=== PATIENT | female | born 1990 | race American Indian/Alaskan Native ===

== ENCOUNTER 2020-04-15 19:29 | Emergency (ER) | payer MEDICAID ==
[2020-04-15 19:56] VITALS: BP 140/78
[2020-04-15 20:21] LABS: Basophils % (Auto) 0.5 % (0.0-1.8); Eosinophils % (Auto) 1.4 % (0.0-4.3); Lymphocytes % (Auto) 25.8 % (13.4-35.0); Monocytes % (Auto) 10.8 % (0.0-7.3); Platelet Count 238 K/mm3 (140-440)
[2020-04-15 20:34] LABS: Alanine Aminotransferase 11 units/L (7-56); Blood Urea Nitrogen 8 mg/dL (7-17); Calcium 8.6 mg/dL (8.4-10.2); Hemolysis Index 10
[2020-04-15 20:37] LABS: BUN/Creatinine Ratio 13
[2020-04-15 20:45] LABS: Basophils # (Auto) 0.1 K/mm3 (0.0-0.1); Eosinophils # (Auto) 0.2 K/mm3 (0.0-0.4); Hematocrit 36.8 % (30.3-42.9); Hemoglobin 12.4 gm/dl (10.1-14.3); Lymphocytes # (Auto) 2.6 K/mm3 (1.2-5.4); Mean Corpuscular HGB Conc 34 % (30-34); Mean Corpuscular Volume 88 fl (79-97); Monocytes # (Auto) 1.1 K/mm3 (0.0-0.8); Red Blood Count 4.18 M/mm3 (3.65-5.03); Red Cell Distribution Width 15.7 % (13.2-15.2)
--- NOTE | 2020-04-15 20:59 | Emergency Department Report ---
ED HPI - General Chief complaint: Vaginal Bleeding Stated complaint: 8WKS /ABD PAIN/SPOTTING Time Seen by Provider: 04/15/20 19:54 Source: patient Mode of arrival: Ambulatory Limitations: No Limitations - History of Present Illness Initial comments: Patient is a 29-year-old female presents emergency room with complaints of lower abdominal discomfort and cramping that began a week ago. She states that last week she was having some vaginal spotting but that has since resolved and she has no bleeding or spotting currently. She states that she has nausea. Patient reports that she is approximately 8 weeks . She states her last menstrual cycle was 02/18/2020. She states that she does not have an appointment with an TEST EQUIPMENT MECHANIC until April. She has not yet had this confirmed. She states that she is also been having some dysuria, vaginal burning, vaginal discharge, she states that she believes she may have an STD or bacterial vaginosis. She denies any itching. She denies any back pain, vomiting, diarrhea, fever. No past medical history. No allergies medications. - Related Data Previous Rx's Medication Instructions Recorded Last Taken Type Acetaminophen [Tylenol] 650 mg PO Q8HR PRN #20 capsule 04/15/20 Unknown Rx Metoclopramide [Reglan] 10 mg PO Q8HR PRN #14 tab 04/15/20 Unknown Rx cephALEXin [Keflex] 500 mg PO BID 7 Days #14 cap 04/15/20 Unknown Rx metroNIDAZOLE [Flagyl] 500 mg PO BID 7 Days #14 tab 04/15/20 Unknown Rx Allergies Allergy/AdvReac Type Severity Reaction Status Date / Time No Known Allergies Allergy Unverified 04/15/20 20:02 ED Review of Systems ROS: Stated complaint: 8WKS /ABD PAIN/SPOTTING Other details as noted in HPI Comment: All other systems reviewed and negative ED Past Medical Hx - Past Medical History Previous Medical History?: No - Surgical History Past Surgical History?: No - Social History Smoking Status: Never Smoker Substance Use Type: None - Medications Home Medications: Home Medications Medication Instructions Recorded Confirmed Last Taken Type Acetaminophen [Tylenol] 650 mg PO Q8HR PRN #20 capsule 04/15/20 Unknown Rx Metoclopramide [Reglan] 10 mg PO Q8HR PRN #14 tab 04/15/20 Unknown Rx cephALEXin [Keflex] 500 mg PO BID 7 Days #14 cap 04/15/20 Unknown Rx metroNIDAZOLE [Flagyl] 500 mg PO BID 7 Days #14 tab 04/15/20 Unknown Rx ED Physical Exam - General Limitations: No Limitations General appearance: alert, in no apparent distress - Head Head exam: Present: atraumatic, normocephalic - Eye Eye exam: Present: normal appearance - ENT ENT exam: Present: mucous membranes moist - Respiratory Respiratory exam: Present: normal lung sounds bilaterally. Absent: respiratory distress, wheezes, rales, rhonchi, stridor, chest wall tenderness, accessory muscle use, decreased breath sounds, prolonged expiratory - Cardiovascular Cardiovascular Exam: Present: regular rate, normal rhythm, normal heart sounds. Absent: systolic murmur, diastolic murmur, rubs, gallop - GI/Abdominal GI/Abdominal exam: Present: soft, normal bowel sounds. Absent: distended, tenderness, guarding, rebound, rigid - Neurological Exam Neurological exam: Present: alert, oriented X3 - Psychiatric Psychiatric exam: Present: normal affect, normal mood - Skin Skin exam: Present: warm, dry, intact ED Course Vital Signs 04/15/20 19:52 Temperature 98.8 F Pulse Rate 92 H Respiratory 18 Rate Blood Pressure 140/78 O2 Sat by Pulse 98 Oximetry ED Medical Decision Making - Lab Data Result diagrams: 04/15/20 20:00 04/15/20 20:00 Lab Results 04/15/20 04/15/20 04/15/20 Range/Units 19:55 20:00 20:00 WBC 10.5 (4.5-11.0) K/mm3 RBC 4.18 (3.65-5.03) M/mm3 Hgb 12.4 (10.1-14.3) gm/dl Hct 36.8 (30.3-42.9) % MCV 88 (79-97) fl MCH 30 (28-32) pg MCHC 34 (30-34) % RDW 15.7 H (13.2-15.2) % Plt Count 238 (140-440) K/mm3 Lymph % (Auto) 25.8 (13.4-35.0) % [place] % (Auto) 10.8 H (0.0-7.3) % Eos % (Auto) 1.4 (0.0-4.3) % Baso % (Auto) 0.5 (0.0-1.8) % Lymph # (Auto) 2.6 (1.2-5.4) K/mm3 [place] # (Auto) 1.1 H (0.0-0.8) K/mm3 Eos # (Auto) 0.2 (0.0-0.4) K/mm3 Baso # (Auto) 0.1 (0.0-0.1) K/mm3 Seg Neutrophils % 61.5 (40.0-70.0) % Seg Neutrophils # 6.5 (1.8-7.7) K/mm3 Sodium 137 (137-145) mmol/L Potassium 3.6 (3.6-5.0) mmol/L Chloride 102.5 (98-107) mmol/L Carbon Dioxide 26 (22-30) mmol/L Anion Gap 12 mmol/L BUN 8 (7-17) mg/dL Creatinine 0.6 (0.6-1.2) mg/dL Estimated GFR > 60 ml/min BUN/Creatinine Ratio 13 % Glucose 101 H (65-100) mg/dL Calcium 8.6 (8.4-10.2) mg/dL Total Bilirubin 0.20 (0.1-1.2) mg/dL AST 16 (5-40) units/L ALT 11 (7-56) units/L Alkaline Phosphatase 51 (35-129) units/L Total Protein 7.3 (6.3-8.2) g/dL Albumin 4.0 (3.9-5) g/dL Albumin/Globulin Ratio 1.2 % HCG, Quant (0-4) mIU/mL Urine Color (Yellow) Urine Turbidity (Clear) Urine pH (5.0-7.0) Ur Specific [place] (1.003-1.030) Urine Protein (Negative) mg/dL Urine Glucose (UA) (Negative) mg/dL Urine Ketones (Negative) mg/dL Urine Blood (Negative) Urine Nitrite (Negative) Urine Bilirubin (Negative) Urine Urobilinogen (<2.0) mg/dL Ur Leukocyte Esterase (Negative) Urine WBC (Auto) (0.0-6.0) /HPF Urine RBC (Auto) (0.0-6.0) /HPF U Epithel Cells (Auto) (0-13.0) /HPF Urine Mucus /HPF Blood Type B POSITIVE 04/15/20 04/15/20 Range/Units 20:00 Unknown WBC (4.5-11.0) K/mm3 RBC (3.65-5.03) M/mm3 Hgb (10.1-14.3) gm/dl Hct (30.3-42.9) % MCV (79-97) fl MCH (28-32) pg MCHC (30-34) % RDW (13.2-15.2) % Plt Count (140-440) K/mm3 Lymph % (Auto) (13.4-35.0) % [place] % (Auto) (0.0-7.3) % Eos % (Auto) (0.0-4.3) % Baso % (Auto) (0.0-1.8) % Lymph # (Auto) (1.2-5.4) K/mm3 [place] # (Auto) (0.0-0.8) K/mm3 Eos # (Auto) (0.0-0.4) K/mm3 Baso # (Auto) (0.0-0.1) K/mm3 Seg Neutrophils % (40.0-70.0) % Seg Neutrophils # (1.8-7.7) K/mm3 Sodium (137-145) mmol/L Potassium (3.6-5.0) mmol/L Chloride (98-107) mmol/L Carbon Dioxide (22-30) mmol/L Anion Gap mmol/L BUN (7-17) mg/dL Creatinine (0.6-1.2) mg/dL Estimated GFR ml/min BUN/Creatinine Ratio % Glucose (65-100) mg/dL Calcium (8.4-10.2) mg/dL Total Bilirubin (0.1-1.2) mg/dL AST (5-40) units/L ALT (7-56) units/L Alkaline Phosphatase (35-129) units/L Total Protein (6.3-8.2) g/dL Albumin (3.9-5) g/dL Albumin/Globulin Ratio % HCG, Quant 77988 H (0-4) mIU/mL Urine Color Yellow (Yellow) Urine Turbidity Slightly-cloudy (Clear) Urine pH 6.0 (5.0-7.0) Ur Specific [place] 1.025 (1.003-1.030) Urine Protein <15 mg/dl (Negative) mg/dL Urine Glucose (UA) Neg (Negative) mg/dL Urine Ketones Neg (Negative) mg/dL Urine Blood Neg (Negative) Urine Nitrite Neg (Negative) Urine Bilirubin Neg (Negative) Urine Urobilinogen 4.0 (<2.0) mg/dL Ur Leukocyte Esterase Lg (Negative) Urine WBC (Auto) 9.0 H (0.0-6.0) /HPF Urine RBC (Auto) 4.0 (0.0-6.0) /HPF U Epithel Cells (Auto) 6.0 (0-13.0) /HPF Urine Mucus 1+ /HPF Blood Type - Radiology Data Radiology results: report reviewed Ordering Physician: AMPARO CRAWLEY Date of Service: 04/15/20 Procedure(s): US OB <= 14 weeks fetus Accession Number(s): [id number] cc: AMPARO CRAWLEY US OB <= 14 weeks fetus, US OB transvaginal INDICATION / CLINICAL INFORMATION: abd pain, . COMPARISON: None available. FINDINGS: Single live fetus of approximately 7 1/2 weeks gestation is seen in the uterus. heart rate is 137. Both ovaries are normal in appearance with normal symmetric blood flow. IMPRESSION: Single live fetus of approximately 7 1/2 weeks gestational age in the uterus. heart rate is 137. Signer Name: Matias Preston MD FACR Signed: 04/15/2020 9:40 PM Workstation Name: [id number] Transcribed By: MS Dictated By: Matias Preston MD Electronically Authenticated By: Matias Preston MD Signed Date/Time: 04/15/202139 DD/ 38 TD/TT: - Medical Decision Making Patient is a 29-year-old female presents emergency room with complaints of lower abdominal discomfort and cramping that began a week ago. She states that last week she was having some vaginal spotting but that has since resolved and she has no bleeding or spotting currently. She states that she has nausea. Patient reports that she is approximately 8 weeks . She states her last menst rual cycle was 02/18/2020. She states that she does not have an appointment with an TEST EQUIPMENT MECHANIC until April. She has not yet had this confirmed. She states that she is also been having some dysuria, vaginal burning, vaginal discharge, she states that she believes she may have an STD or bacterial vaginosis. She denies any itching. She denies any back pain, vomiting, diarrhea, fever. No past medical history. No allergies medications. VSS. no abd ttp, no guarding, no rebound, no rigidity, normal bowel sounds, [place] [id number], otherwise labs are stable. pt is Rh +. UA shows small amount of WBCs and large leukocyte esterase, could be secondary to UTI vs STD. pt prophylactically treated with ceftriaxone and azithromycin secondary to . OB US: Single live fetus of approximately 7 1/2 weeks gestational age in the uterus. heart rate is 137. discussed all results with pt and answered questions. pt given prescription for flagyl, tylenol, reglan, and keflex. advised pt please take medication as prescribed. increase your water intake. take a vitamin over the counter. follow up with your accounts payable assistant. follow up with a primary care doctor. please follow up with a clinic or health department for full STD panel. have any partner tested and treated as well. avoid sexual intercourse. return to the emergency room for any new or worsening symptoms. Critical care attestation.: If time is entered above; I have spent that time in minutes in the direct care of this critically ill patient, excluding procedure time. ED Disposition Clinical Impression: Concern about STD in female without diagnosis Qualifiers: Weeks of gestation: less than 8 weeks Qualified Code(s): Z3A.01 - Less than 8 w eeks gestation of Abdominal pain Qualifiers: Abdominal location: lower abdomen, unspecified Qualified Code(s): R10.30 - Lower abdominal pain, unspecified Vaginitis Qualifiers: Chronicity: acute Qualified Code(s): N76.0 - Acute vaginitis UTI (urinary tract infection) Qualifiers: Urinary tract infection type: acute cystitis Hematuria presence: without hematuria Qualified Code(s): N30.00 - Acute cystitis without hematuria Disposition: DC- TO HOME OR SELFCARE Is pt being admited?: No Does the pt Need Aspirin: No Condition: Stable Instructions: Abdominal Pain During , [id number], First Trimester of , [id number], Urinary Tract Infection, Adult Additional Instructions: please take medication as prescribed. increase your water intake. take a vitamin over the counter. follow up with your accounts payable assistant. follow up with a primary care doctor. please follow up with a clinic or health department for full STD panel. have any partner tested and treated as well. avoid sexual intercourse. return to the emergency room for any new or worsening symptoms. Prescriptions: metroNIDAZOLE [Flagyl] 500 mg PO BID 7 Days #14 tab cephALEXin [Keflex] 500 mg PO BID 7 Days #14 cap Metoclopramide [Reglan] 10 mg PO Q8HR PRN #14 tab PRN Reason: nausea/vomiting Acetaminophen [Tylenol] 650 mg PO Q8HR PRN #20 capsule PRN Reason: pain Referrals: PRIMARY CARE,MD [Primary Care Provider] - 2-3 Days your, accounts payable assistant [Other] - 2-3 Days Time of Disposition: 22:00 Print Language: IRANIAN
[2020-04-15 21:21] LABS: Bilirubin,Urine NEG (Negative); Blood,Urine NEG (Negative); Color,Urine Yellow (Yellow); Mucus,Urine 1+ /HPF; Protein,Urine <15 mg/dL mg/dL (Negative)
[2020-04-15] MEDS ORDERED: LIDOCAINE-MPF (1%) 10 MG/1 ML VIAL 5 ML INFILTRATI ONE (21:26)
[2020-04-15] MEDS ORDERED: AZITHROMYCIN 250 MG TAB PO ONE (21:26)
--- NOTE | 2020-04-15 21:45 | Ultrasound Report ---
US OB <= 14 weeks fetus, US OB transvaginal INDICATION / CLINICAL INFORMATION: abd pain, . COMPARISON: None available. FINDINGS: Single live fetus of approximately 7 1/2 weeks gestation is seen in the uterus. heart rate is 1 37. Both ovaries are normal in appearance with normal symmetric blood flow. IMPRESSION: Single live fetus of approximately 7 1/2 weeks gestational age in the uterus. heart rate is 137 . Signer Name: Matias Preston MD FACMarco Antonio Signed: 04/15/2020 9:40 PM Workstation Name: [id number]
== END 2020-04-15 21:58 | disposition home or self-care (01) ==
LOC: ED 19:29
DX: O23.41 Unspecified infection of urinary tract in pregnancy, first trimester (principal); O23.591 Infection of other part of genital tract in pregnancy, first trimester; Z20.2 Contact with and (suspected) exposure to infections with a predominantly sexual mode of transmission; Z3A.08 8 weeks gestation of pregnancy; Z79.899 Other long term (current) drug therapy
CPT/HCPCS: 36415; 76801; 76817; 80053; 81001; 84702; 85025; 86900; 86901; 87086; 96372; 99284; J0696

== ENCOUNTER 2021-07-06 20:30 | Emergency (ER) | payer OTHER ==
[2021-07-06 22:20] VITALS: BP 124/81
[2021-07-06] MEDS ORDERED: ASPIRIN 325 MG TAB PO ONE (22:39)
[2021-07-06 23:24] LABS: Basophils # (Auto) 0.1 K/mm3 (0.0-0.1); Basophils % (Auto) 0.8 % (0.0-1.8); Eosinophils # (Auto) 0.2 K/mm3 (0.0-0.4); Eosinophils % (Auto) 3.4 % (0.0-4.3); Hemoglobin 9.6 gm/dl (10.1-14.3); Lymphocytes # (Auto) 2.5 K/mm3 (1.2-5.4); Lymphocytes % (Auto) 40.4 % (13.4-35.0); Mean Corpuscular HGB Conc 31 % (30-34); Mean Corpuscular Volume 77 fl (79-97); Monocytes # (Auto) 0.4 K/mm3 (0.0-0.8); Monocytes % (Auto) 6.9 % (0.0-7.3); Platelet Count 638 K/mm3 (140-440); Red Blood Count 4.03 M/mm3 (3.65-5.03); Red Cell Distribution Width 19.9 % (13.2-15.2)
[2021-07-06 23:41] LABS: Alanine Aminotransferase 13 units/L (7-56); Albumin 4.6 g/dL (3.9-5); BUN/Creatinine Ratio 14; Blood Urea Nitrogen 11 mg/dL (7-17); Calcium 9.9 mg/dL (8.4-10.2); Hemolysis Index 1
--- NOTE | 2021-07-07 04:02 | Emergency Department Report ---
ED Burn/Smoke HPI - General Chief complaint: Pain General Stated complaint: LT SIDE CHEST PAIN Source: patient Mode of arrival: Ambulatory Limitations: No Limitations - Related Data Previous Rx's Medication Instructions Recorded Last Taken Type Acetaminophen [Tylenol] 650 mg PO Q8HR PRN #20 capsule 04/15/20 Unknown Rx Metoclopramide [Reglan] 10 mg PO Q8HR PRN #14 tab 04/15/20 Unknown Rx cephALEXin [Keflex] 500 mg PO BID 7 Days #14 cap 04/15/20 Unknown Rx metroNIDAZOLE [Flagyl] 500 mg PO BID 7 Days #14 tab 04/15/20 Unknown Rx Allergies Allergy/AdvReac Type Severity Reaction Status Date / Time No Known Allergies Allergy Unverified 04/15/20 20:02 Burn HPI - History Stated Complaint: LT SIDE CHEST PAIN Chief Complaint: Pain General - Home Meds and Allergies Home Medications: Previous Rx's Medication Instructions Recorded Last Taken Type Acetaminophen [Tylenol] 650 mg PO Q8HR PRN #20 capsule 04/15/20 Unknown Rx Metoclopramide [Reglan] 10 mg PO Q8HR PRN #14 tab 04/15/20 Unknown Rx cephALEXin [Keflex] 500 mg PO BID 7 Days #14 cap 04/15/20 Unknown Rx metroNIDAZOLE [Flagyl] 500 mg PO BID 7 Days #14 tab 04/15/20 Unknown Rx Allergies/Adverse Reactions: Allergies Allergy/AdvReac Type Severity Reaction Status Date / Time No Known Allergies Allergy Unverified 04/15/20 20:02 ED Review of Systems ROS: Stated complaint: LT SIDE CHEST PAIN Other details as noted in HPI ED Past Medical Hx - Social History Smoking Status: Never Smoker Substance Use Type: None - Medications Home Medications: Home Medications Medication Instructions Recorded Confirmed Last Taken Type Acetaminophen [Tylenol] 650 mg PO Q8HR PRN #20 capsule 04/15/20 Unknown Rx Metoclopramide [Reglan] 10 mg PO Q8HR PRN #14 tab 04/15/20 Unknown Rx cephALEXin [Keflex] 500 mg PO BID 7 Days #14 cap 04/15/20 Unknown Rx metroNIDAZOLE [Flagyl] 500 mg PO BID 7 Days #14 tab 04/15/20 Unknown Rx ED Physical Exam - General Limitations: No Limitations ED Course Vital Signs 07/06/21 21:41 Temperature 98.9 F Pulse Rate 112 H Respiratory 20 Rate Blood Pressure 124/81 O2 Sat by Pulse 98 Oximetry ED Medical Decision Making - Lab Data Result diagrams: 07/06/21 23:07 07/06/21 23:07 Critical care attestation.: If time is entered above; I have spent that time in minutes in the direct care of this critically ill patient, excluding procedure time. ED Disposition Condition: Stable Referrals: PRIMARY CARE, [Primary Care Provider] - 3-5 Days
--- NOTE | 2021-07-07 04:06 | Emergency Department Report ---
ED Chest Pain HPI - General Chief Complaint: Pain General Stated Complaint: LT SIDE CHEST PAIN Source: patient Mode of arrival: Ambulatory Limitations: No Limitations - History of Present Illness Initial Comments: Patient is a 30-year-old -[place] female with no past medical history who presents to the ED with complaint of acute onset persistent left-sided pleuritic chest pain that radiates to the mid posterior thoracic area for the last 2 days, worse in the last 12 hours. Patient states that she is 3 weeks s/p abdominoplasty surgery in [facility]. Patient states that she is not on any contraceptives. Patient denies dizziness, cough, nausea and vomiting, shortness of breath, neck pain, headache, heavy lifting, numbness and tingling or weakness of upper and lower extremities bilaterally, abdominal pain, change in vision, fever and chills or sore throat. MD Complaint: chest pain (Left-sided chest pain, s/p abdominoplasty surgery 3 weeks ago) -: Sudden, days(s) (2) Onset: during exertion, awoke with symptoms Pain Location: left chest Pain Radiation: back (Left mid posterior thoracic pain) Severity: moderate Severity scale (0 -10): 6 Quality: aching, sharp, other (Pleuritic) Consistency: intermittent Improves With: nothing Worsens With: inspiration, palpation Context: recent surgery (Abdominoplasty surgery) re: denies: nausea, vomting, diaphoresis, dyspnea, sense of impending doom, other Other Symptoms: denies: cough, rash, acid taste in mouth, leg swelling, palpitations, burping Treatments Prior to Arrival: none Aspirin use within the Past 7 Days: (0) No - Related Data On Oral Contraceptives: No Previous Rx's Medication Instructions Recorded Last Taken Type Acetaminophen [Tylenol] 650 mg PO Q8HR PRN #20 capsule 04/15/20 Unknown Rx Metoclopramide [Reglan] 10 mg PO Q8HR PRN #14 tab 04/15/20 Unknown Rx cephALEXin [Keflex] 500 mg PO BID 7 Days #14 cap 04/15/20 Unknown Rx metroNIDAZOLE [Flagyl] 500 mg PO BID 7 Days #14 tab 04/15/20 Unknown Rx Allergies Allergy/AdvReac Type Severity Reaction Status Date / Time No Known Allergies Allergy Unverified 04/15/20 20:02 Heart Score - HEART Score History: Slightly suspicious EKG: Normal Age: < 45 Risk factors: No known risk factors Troponin: < normal limit HEART Score: 0 - EKG Read Time Time EKG Completed: 00:00 EKG Read Time: 00:01 - Critical Actions Critical Actions: 0-3 pts:0.9-1.7%risk of adverse cardiac event.Candidate for discharge ED Review of Systems ROS: Stated complaint: LT SIDE CHEST PAIN Other details as noted in HPI Constitutional: denies: chills, fever Eyes: denies: eye pain, eye discharge, vision change ENT: denies: ear pain, throat pain Respiratory: denies: cough, shortness of breath, wheezing Cardiovascular: chest pain (Left-sided chest pain). denies: palpitations Endocrine: no symptoms reported Gastrointestinal: denies: abdominal pain, nausea, vomiting, diarrhea Genitourinary: denies: urgency, dysuria, discharge Musculoskeletal: back pain (Mid posterior thoracic pain). denies: joint swelling, arthralgia Skin: denies: rash, lesions Neurological: denies: headache, weakness, paresthesias Psychiatric: denies: anxiety, depression Hematological/Lymphatic: denies: easy bleeding, easy bruising ED Past Medical Hx - Social History Smoking Status: Never Smoker Substance Use Type: None - Medications Home Medications: Home Medications Medication Instructions Recorded Confirmed Last Taken Type Acetaminophen [Tylenol] 650 mg PO Q8HR PRN #20 capsule 04/15/20 Unknown Rx Metoclopramide [Reglan] 10 mg PO Q8HR PRN #14 tab 04/15/20 Unknown Rx cephALEXin [Keflex] 500 mg PO BID 7 Days #14 cap 04/15/20 Unknown Rx metroNIDAZOLE [Flagyl] 500 mg PO BID 7 Days #14 tab 04/15/20 Unknown Rx ED Physical Exam - General Limitations: No Limitations General appearance: alert, in no apparent distress - Head Head exam: Present: atraumatic, normocephalic, normal inspection - Eye Eye exam: Present: normal appearance, PERRL, EOMI Pupils: Present: normal accommodation - ENT ENT exam: Present: normal exam, normal orophraynx, mucous membranes moist, TM's normal bilaterally, normal external ear exam - Neck Neck exam: Present: normal inspection, full ROM. Absent: tenderness - Respiratory Respiratory exam: Present: normal lung sounds bilaterally, chest wall tenderness (Palpable reproducible left-sided chest wall tenderness). Absent: respiratory distress, wheezes, rales, rhonchi, accessory muscle use, decreased breath sounds, prolonged expiratory - Cardiovascular Cardiovascular Exam: Present: normal rhythm, tachycardia, normal heart sounds. Absent: systolic murmur, diastolic murmur, rubs, gallop - GI/Abdominal GI/Abdominal exam: Present: soft, normal bowel sounds. Absent: tenderness, guarding, rebound, hyperactive bowel sounds, hypoactive bowel sounds, organomegaly - Extremities Exam Extremities exam: Present: normal inspection, full ROM, normal capillary refill - Back Exam Back exam: Present: normal inspection, full ROM. Absent: tenderness, CVA tenderness (R), CVA tenderness (L), muscle spasm, paraspinal tenderness, vertebral tenderness - Neurological Exam Neurological exam: Present: alert, oriented X3, CN II-XII intact, normal gait, reflexes normal - Psychiatric Psychiatric exam: Present: normal affect, normal mood, anxious - Skin Skin exam: Present: warm, dry, intact, normal color. Absent: rash ED Course Vital Signs 07/06/21 21:41 Temperature 98.9 F Pulse Rate 112 H Respiratory 20 Rate Blood Pressure 124/81 O2 Sat by Pulse 98 Oximetry SOO score - Soo Score Age > 65: (0) No Aspirin use within the Past 7 Days: (0) No 3 or more CAD Risk Factors: (0) No 2 or more Angina events in past 24 hrs: (0) No Known CAD with more than 50% Stenosis: (0) No Elevated Cardiac Markers: (0) No ST Deviation Greater than 0.5mm: (0) No SOO Score: 0 ED Medical Decision Making - Lab Data Result diagrams: 07/06/21 23:07 07/06/21 23:07 - Medical Decision Making This is a 30-year-old -[place] female with no past medical history who presents to the ED with complaint of acute onset persistent left-sided pleuritic chest pain that radiates to the mid posterior thoracic area for the last 2 days, worse in the last 12 hours. Patient states that she is 3 weeks s/p abdominoplasty surgery in [facility]. Patient states that she is not on any contraceptives. In the ED, patient is alert and oriented x3 and is not in any d istress but tachycardic and afebrile in triage. Lab test results were reviewed and are all nonactionable. Chest CTA was ordered but the patient signed out AMA before having the chest CTA performed. Patient left the ED AMA before EKG could be performed. - Differential Diagnosis PE; pneumonia; ACS; costochondritis; muscle strain; anxiety Critical care attestation.: If time is entered above; I have spent that time in minutes in the direct care o f this critically ill patient, excluding procedure time. ED Disposition Clinical Impression: Atypical chest pain, Pleuritic chest pain Disposition: LEFT AGAINST MEDICAL ADVICE Is pt being admited?: No Does the pt Need Aspirin: No Condition: Undetermined Instructions: Nonspecific Chest Pain, Adult, [id number], Chest Wall Pain, [id number] Referrals: PRIMARY CARE, [Primary Care Provider] - 3-5 Days Time of Disposition: 02:20 Print Language: PALAUAN
== END 2021-07-07 07:14 | disposition left against medical advice (07) ==
LOC: ED 20:30
DX: R07.89 Other chest pain (principal); M54.6 Pain in thoracic spine; Z79.899 Other long term (current) drug therapy
CPT/HCPCS: 36415; 80053; 84484; 84703; 85025; 99284